=== PATIENT | female | born 1935 | race Caucasian/White ===

== ENCOUNTER → 2016-10-09 | Outpatient (CLI) | payer MEDICARE, BC, OTHER ==
--- NOTE | 2016-10-09 12:51 | KCIC ---
PROCEDURE MR of the left knee HISTORY Pain and swelling. Injury October 06, 2015. COMPARISON None TECHNIQUE Standard noncontrast images are obtained. FINDINGS There is mild signal within the medial meniscus although this may be exaggerated by some motion degradation. There is also some distortion of the medial meniscus particularly at the body segment as seen on coronal images, with mild extrusion from the joint. Findings are compatible with a degenerative tear. The anterior and the posterior cruciate ligaments are intact. Medial collateral ligament intact. Iliotibial band unremarkable. Fibular collateral ligament, biceps femoris tendon and popliteus tendon are intact. Extensor mechanism is intact. Small amount of joint fluid. No evidence of osteochondral loose body. 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 Minimal subchondral marrow edema at the posterior medial tibial plateau appears reactive or degenerative. No evidence of aggressive bone destruction or acute macro fracture. There is mild soft tissue edema around the knee. There is a thin layer of fluid tracking along the posterior popliteus. IMPRESSION 1. Degenerative tear of the medial meniscus. 2. Primary osteoarthritis. Electronically signed by: Daryn Piper MD (Oct 09, 2016 12:50:03)
== END | disposition home or self-care (01) ==
LOC: KCIC MRI 11:44
PROVIDERS: ATTEND Internal Medicine
DX: M17.12 Unilateral primary osteoarthritis, left knee (principal); M25.462 Effusion, left knee; S83.242A Other tear of medial meniscus, current injury, left knee, initial encounter
CPT/HCPCS: 73721